=== PATIENT | female | born 1980 | race American Indian/Alaskan Native ===

== ENCOUNTER 2019-08-13 15:04 | Observation (INO) | payer OTHER ==
[2019-08-13] MEDS ORDERED: ACETAMINOPHEN 325 MG TAB PO PRN (17:35)
[2019-08-13] MEDS ORDERED: oxyCODONE /ACETAMINOPHEN 5-325MG TAB PO PRN (17:35)
[2019-08-13] MEDS ORDERED: HYDROmorphone 1 MG/1 ML INJ IV PRN (17:35)
[2019-08-13] MEDS ORDERED: METOCLOPRAMIDE 10 MG/2 ML INJ IV PRN (17:35)
[2019-08-13] MEDS ORDERED: ONDANSETRON 4 MG/2 ML INJ IV PRN (17:35)
[2019-08-13] MEDS ORDERED: SODIUM CHLORIDE 0.9% 1000 ML 1,000 ML IV SCH (18:00)
[2019-08-13 19:46] LABS: Alanine Aminotransferase 12 units/L (7-56); Albumin 4.4 g/dL (3.9-5); BUN/Creatinine Ratio 17; Blood Urea Nitrogen 12 mg/dL (7-17); Calcium 9.1 mg/dL (8.4-10.2); Hemolysis Index 1
[2019-08-13 19:48] LABS: % Iron Saturation 6.23 %
[2019-08-13] MEDS ORDERED: SODIUM FERRIC GLUCON/SUCRO 125 MG in SODIUM CHLORIDE 0.9% 100 ML IV ONE (20:09)
[2019-08-13] MEDS: FAMOTIDINE 20 MG TAB PO SCH ×2 (20:12→21:20)
[2019-08-13 20:24] LABS: Basophils # (Auto) 0.1 K/mm3 (0.0-0.1); Basophils % (Auto) 0.7 % (0.0-1.8); Eosinophils # (Auto) 0.2 K/mm3 (0.0-0.4); Eosinophils % (Auto) 2.4 % (0.0-4.3); Lymphocytes # (Auto) 2.4 K/mm3 (1.2-5.4); Lymphocytes % (Auto) 27.7 % (13.4-35.0); Mean Corpuscular HGB Conc 29 % (30-34); Monocytes # (Auto) 0.4 K/mm3 (0.0-0.8); Monocytes % (Auto) 4.6 % (0.0-7.3); Platelet Count 413 K/mm3 (140-440); Red Blood Count 3.42 M/mm3 (3.65-5.03)
[2019-08-13 20:26] LABS: Hematocrit 22.9 % (30.3-42.9); Hemoglobin 6.5 gm/dl (10.1-14.3); Mean Corpuscular Volume 67 fl (79-97); Red Cell Distribution Width 20.3 % (13.2-15.2)
[2019-08-13] MEDS ORDERED: POTASSIUM CHLORIDE ER 20 MEQ TAB PO ONE (22:40)
[2019-08-14] MEDS: VERAPAMIL ER 240 MG TAB PO SCH ×2 (00:15→09:58)
--- NOTE | 2019-08-14 03:26 | Event Note ---
Date: 08/13/19 See H/p inreports Symptomatic anemia Admitted for Iron Infusion Patient is a [employer] and refuses Blood transfusion.
[2019-08-14] MEDS ORDERED: ALBUTEROL 8.5 GM INHALATION IH SCH (03:45)
--- NOTE | 2019-08-14 03:50 | History and Physical Report ---
CHIEF COMPLAINT: Severe fatigue and lightheadedness. HISTORY OF PRESENT ILLNESS: A 38-year-old -[place] female with history of menorrhagia and recent uterine artery embolization, sent by Dr. Farias for iron transfusion. The patient has been having low hemoglobin and hematocrit. The patient has been refusing a blood transfusion because of her being a [employer]. The patient gets easily fatigued, short of breath, and also lightheaded and dizziness. She feels as if she is going to pass out. The patient admitted for iron transfusion. No blood transfusion. PAST MEDICAL HISTORY: Significant for anemia and menorrhagia. PAST SURGICAL HISTORY: Uterine artery embolization. FAMILY HISTORY: Hypertension. SOCIAL HISTORY: Does not smoke. No alcohol, no recreational drugs. REVIEW OF SYSTEMS: Significant for fatigue, shortness of breath, lightheadedness, and dizziness on minimal exertion. No chest pain. Otherwise, review of systems negative. PHYSICAL EXAMINATION: GENERAL: Young female, cooperative during examination. VITAL SIGNS: Blood pressure is 143/87, temperature 99.5, pulse is 95, respirations 24. HEENT: Pale mucous membranes, pale conjunctivae. NECK: Supple, no lymphadenopathy, no thyromegaly. LUNGS: Clear to auscultation and percussion. Good air entry. CARDIOVASCULAR: S1, S2 heard. No gallop, no murmur, no rub. Apical impulse in left fifth intercostal space and midclavicular line. ABDOMEN: Soft and benign. No hepatosplenomegaly. No guarding, no rigidity. Hernial orifices are normal. EXTREMITIES: Good pedal pulses. No pedal edema. CENTRAL NERVOUS SYSTEM: Alert and oriented x 4, nonfocal exam. SKIN: Normal. LABORATORY DATA: White count is 8800, H and H is 6.5 and 22.9, platelet count is 413,000. Electrolytes: Potassium is 3.1. Iron is 23, low. Percentage saturation is 6.23. Liver enzymes are normal. B12 is normal. Folic acid is normal. ASSESSMENT AND PLAN: 1. Severe symptomatic anemia. The patient to get IV Iron infusion. The patient refuses blood transfusion, hence no blood transfusion. Monitor iron levels and CBC after the transfusion and possible discharge in 23 hours. 2. Hypokalemia, supplemented. 3.Menorrhagia. The patient advised about possible hysterectomy if uterine artery embolization fails. 4. Deep venous thrombosis prophylaxis, SCDs and GI prophylaxis. JOB# [id number] GERSONM/YOCASTA GALVAND
[2019-08-14] MEDS ORDERED: ALBUTEROL 2.5 MG/3 ML NEBU IH SCH (04:00)
[2019-08-14] MEDS ORDERED: ALBUTEROL 2.5 MG/3 ML NEBU IH PRN (04:35)
[2019-08-14 07:09] LABS: Basophils % (Auto) 0.6 % (0.0-1.8); Eosinophils # (Auto) 0.2 K/mm3 (0.0-0.4); Eosinophils % (Auto) 2.7 % (0.0-4.3); Lymphocytes % (Auto) 33.6 % (13.4-35.0); Mean Corpuscular HGB Conc 29 % (30-34); Monocytes # (Auto) 0.5 K/mm3 (0.0-0.8); Platelet Count 349 K/mm3 (140-440); Red Blood Count 3.78 M/mm3 (3.65-5.03)
[2019-08-14 07:18] LABS: Hematocrit 25.2 % (30.3-42.9); Hemoglobin 7.4 gm/dl (10.1-14.3); Mean Corpuscular Volume 67 fl (79-97); Red Cell Distribution Width 20.5 % (13.2-15.2)
[2019-08-14 07:30] LABS: BUN/Creatinine Ratio 13; Blood Urea Nitrogen 9 mg/dL (7-17); Calcium 8.4 mg/dL (8.4-10.2); Hemolysis Index 0
[2019-08-14] MEDS: FAMOTIDINE 20 MG TAB PO SCH (09:59)
[2019-08-14] MEDS ORDERED: FERROUS GLUCONATE 324 MG TAB PO SCH (10:00)
[2019-08-14] MEDS ORDERED: ASPIRIN 325 MG TAB PO SCH (10:00)
[2019-08-14 12:09] VITALS: BP 150/73
--- NOTE | 2019-08-14 14:11 | Discharge Summary ---
Providers - Providers Date of Admission: 08/13/19 16:29 Date of discharge: 08/14/19 Attending physician: NASEEM IVY 08/13/19 17:35 Consult to Physician [CONS] Routine Comment: Consulting Provider: JOSÉ MANUEL FARIAS Physician Instructions: Reason For Exam: severe iron deficiency anemia Primary care physician: SANDOVAL CHOWDHURY Hospitalization Condition: Fair Hospital course: Patient is 38 yo with uterine fibroids s/p recent embolization. he was sent in from Dr. Farias because of lightheadedness fatigue,anemia. She is a [employer], so cannot allow blood transfusion. Sent in for iron infusion.She was seen and evaluated. Initial hemoglobin was 6.5. She was started on Ferrlecit infusion. Labs done following day show Hemoglobin 7.4. She felt better so was discharged home. Disposition: TO HOME OR SELFCARE - Discharge Diagnoses (1) Anemia due to chronic blood loss Status: Acute (2) Uterine fibroid Status: Acute (3) Menorrhagia Status: Acute (4) Obesity (BMI 30.0-34.9) Status: Acute Core Measure Documentation - Palliative Care Palliative Care/ Comfort Measures: Not Applicable - Core Measures Any of the following diagnoses?: none Exam - Constitutional Vitals: Temp Pulse Resp BP Pulse Ox 97.7 F 90 18 150/73 98 08/14/19 11:03 08/14/19 11:03 08/14/19 11:03 08/14/19 11:03 08/14/19 11:03 Plan Diet: low fat, low cholesterol, low salt Plan of Treatment: 1.Follow up with Dr. Chowdhury in 3-5 days. 2.Follow up with Dr. Farias in 3-5 days Follow up with: SANDOVAL CHOWDHURY MD [Primary Care Provider] - 7 Days
[2019-08-14] MEDS ORDERED: VERAPAMIL ER 240 MG TAB PO SCH (22:00)
== END 2019-08-14 17:05 | disposition home or self-care (01) ==
LOC: 3A 15:04 → UNDOADMIN 15:04 → PREINTOOBSV 16:15 → PREOBSVTOIN 16:17 → 4A 16:29
PROVIDERS: ADMIT Internal Medicine; ATTEND Internal Medicine
DX: D50.0 Iron deficiency anemia secondary to blood loss (chronic) (principal); E87.6 Hypokalemia; N92.0 Excessive and frequent menstruation with regular cycle; R53.83 Other fatigue; R42 Dizziness and giddiness; D25.9 Leiomyoma of uterus, unspecified; E66.9 Obesity, unspecified; Z68.34 Body mass index [BMI] 34.0-34.9, adult; Z98.890 Other specified postprocedural states; Z90.49 Acquired absence of other specified parts of digestive tract
CPT/HCPCS: 36415; 80048; 80053; 82607; 82747; 83036; 83550; 85025; 94640; 96361; 96365; G0378; G0379; J2916; J7030

== ENCOUNTER 2019-10-07 13:45 | Outpatient (CLI) | payer OTHER ==
--- NOTE | 2019-10-07 16:14 | Magnetic Resonance Report ---
MRI pelvis with and without contrast INDICATION: Leiomyoma of uterus unspecified. Menorrhagia. TECHNIQUE: Multiplanar, multisequence MR images were obtained through the pelvis before and after injection of 2 0 mL MultiHance contrast. COMPARISON: None available. FINDINGS: Reproductive organs: An arcuate uterus is noted with multiple probable fibroids. The largest fibroid is intramural and located along the fundus measuring 3.2 x 1.6 cm on image 21 of series 10. No other suspicious mass is seen within the uterus. No endometrial lesion is identified. The junctional zone a ppears unremarkable. Multiple nabothian cysts are noted along the lower uterine segment. Multiple sub centimeter follicles are seen in the right ovary. The left ovary contains multiple follicles as well including a dominant follicle measuring up to 2.8 cm. No adnexal mass is seen. Urinary bladder: No significant abnormality. GI tract: No significant abnormality of the visualized portions of the small bowel/colon. The appendi x is not seen. No free fluid or fluid collection is identified. Lymph nodes: No significant adenopathy. Vasculature: No significant abnormality. Bones: No significant abnormality. Additional findings: None. IMPRESSION: 1. Multiple probable uterine fibroids measuring up to 3.2 x 1.6 cm. 2. Additional findings as above. Signer Name: Dmitry Nguyen MD Signed: 10/07/2019 4:09 PM Workstation Name: [id number]
== END 2019-10-07 13:46 | disposition home or self-care (01) ==
LOC: MRI 13:45
PROVIDERS: ATTEND Radiology Diagnostic Radiology
DX: D25.9 Leiomyoma of uterus, unspecified (principal)
CPT/HCPCS: 72197; A9577